=== PATIENT | male | born 1955 | race Caucasian/White ===

== ENCOUNTER 2017-05-08 12:14 | Emergency (ER) | payer MEDICAID, OTHER ==
[2017-05-08 12:21] VITALS: BP 165/94
--- NOTE | 2017-05-08 12:31 | ED Physician Documentation ---
PD HPI CHEST PAIN - Chief complaint Chief Complaint: Cardiac - History obtained from History obtained from: Patient - History of Present Illness Timing - onset: How many days ago (3) Timing - onset during: Eating. No: Light activity, Exertion Timing - duration: Minutes (had had intermittent chest discomfort/pressure that is fleeting, more after eating. Not exertional but does not do exercise per se. Took BP and it was elevated, with known HTN. Had had Metoprolol decreased few months ago due to slower HR. Talked with PMD 2 days ago about symptoms and HTN, and got Rx for HCTZ started yesterday, with appt to see him next week.) Timing - details: Now resolved, Intermittant Quality: Tightness Location: Left chest Radiation: No: Jaw, Neck, Back Worsened by: Eating. No: Exertion, Inspiration, Movement Associated symptoms: No: Shortness of air, Diaphoresis, Nausea, Vomiting, Feeling faint / dizzy, General Weakness, Palpitations, Cough Similar symptoms before: Has not had sx before Recently seen: Not recently seen Review of Systems Constitutional: denies: Fever, Chills Nose: denies: Rhinorrhea / runny nose, Congestion Throat: denies: Sore throat Respiratory: denies: Cough GI: denies: Abdominal Pain, Nausea, Vomiting, Diarrhea Skin: denies: Rash, Lesions Neurologic: denies: Generalized weakness, Focal weakness, Numbness PD PAST MEDICAL HISTORY - Past Medical History Cardiovascular: Hypertension Psych: Depression, Anxiety - Past Surgical History Past Surgical History: Yes General: Hiatal hernia repair HEENT: Rhinoplasty - Present Medications Home Medications: Ambulatory Orders Medication Instructions Recorded Confirmed Citalopram [CeleXA] 10 mg ORAL DAILY 11/17/14 05/08/17 Metoprolol Tartrate 25 mg ORAL DAILY 11/17/14 05/08/17 - Allergies Allergies/Adverse Reactions: Allergies Allergy/AdvReac Type Severity Reaction Status Date / Time No Known Drug Allergies Allergy Verified 11/17/14 19:44 - Social History Does the pt smoke?: Yes Smoking Status: Current every day smoker Does the pt drink ETOH?: Yes Does the pt have substance abuse?: No - Family History Family history: reports: CAD (in brothers and father) - Immunizations Immunizations are current?: Yes PD ED PE NORMAL - Vitals Vital signs reviewed: Yes - General General: Alert and oriented X 3, Well developed/nourished - HEENT HEENT: Moist mucous membranes, Pharynx benign - Neck Neck: Supple, no meningeal sign, No adenopathy - Cardiac Cardiac: RRR, No murmur - Respiratory Respiratory: Clear bilaterally - Abdomen Abdomen: Soft, Non tender - Derm Derm: Normal color, Warm and dry - Extremities Extremities: Normal ROM s pain, No edema, No calf tenderness / cord - Neuro Neuro: Alert and oriented X 3, No motor deficit, Normal speech Results - Vitals Vitals: Vital Signs - 24 hr 05/08/17 12:19 Temperature 35.5 C L Heart Rate 81 Respiratory 16 Rate Blood Pressure 165/94 H O2 Saturation 98 Oxygen O2 Source Room air - EKG (time done) 12:32 Rate: Rate (enter#) (66) Rhythm: NSR [place]: Normal Intervals: Normal CT QRS: Normal Ischemia: Normal ST segments. No: ST elevation c/w ischemia, ST depression PD MEDICAL DECISION MAKING - ED course Complexity details: reviewed results, considered differential (brief intermittent chest discomfort after eating mainly. Not exertional though he does not do exercise per se. ECG is normal and he would prefer to stop at that level of testing. I talked with her about the ECG being only 90-95% accurate for CO and does not include angina. His pattern does not sound anginal. Suggested Troponin and possible CXR. He prefers not and understands the degree of sensitivity of just the ECG. His pattern is more suggestive of GERD or gastritis. Encouraged to follow up with PMD. ), d/w patient Departure - Departure Disposition: 01 Home, Self Care Clinical Impression: Chest pain of uncertain etiology Condition: Stable Record reviewed to determine appropriate education?: Yes Instructions: ED Chest Pain Atypical Unkn Cause Follow-Up: Carolin Quinteros MD [Primary Care Provider] - Comments: Your ECG is normal here, but is not 100% predictive of heart disease. The pattern of your discomfort sounds more like GI/reflux or such, but is also not completely predictive. Follow up with your PMD about BP and further chest discomfort. I would try Pepcid daily for the next 2-3 weeks to treat if this is reflux related. Return to ED if worse symptoms, exertional related, other associated symptoms, etc. Discharge Date/Time: 05/08/17 13:17
== END 2017-05-08 13:17 | disposition home or self-care (01) ==
LOC: ED 12:14
DX: R07.89 Other chest pain (principal); I10 Essential (primary) hypertension; Z82.49 Family history of ischemic heart disease and other diseases of the circulatory system; F17.200 Nicotine dependence, unspecified, uncomplicated
CPT/HCPCS: 93005; 99283; 99284

== ENCOUNTER 2017-11-18 13:22 | Emergency (ER) | payer SELFPAY ==
[2017-11-18 13:30] VITALS: BP 153/84
--- NOTE | 2017-11-18 14:28 | XRAY Report ---
EXAM: CHEST RADIOGRAPHY EXAM DATE: 11/18/2017 02:12 PM. CLINICAL HISTORY: Cough soa. COMPARISON: None. TECHNIQUE: 2 views. FINDINGS: Lungs/Pleura: Clear. No effusion or pneumothorax. Mediastinum: Heart and mediastinal contours are unremarkable. Upper lobe vessels not distended. Other: None. IMPRESSION: No acute disease. [facility] Referring Provider Line: [phone] SITE ID: [id number]
--- NOTE | 2017-11-18 14:40 | ED Physician Documentation ---
PD HPI URI - Stated complaint Stated Complaint: COUGH/DIFF BREATHING - Chief complaint Chief Complaint: Resp - History obtained from History obtained from: Patient - History of Present Illness Timing - onset: How many weeks ago (has had some cough for 6 weeks but worse the past week now with haorse cough, and repetitive cough to point of almost vomiting.) Timing duration: Weeks Timing details: Gradual onset, Still present Associated symptoms: Dry cough, Chest pain (with coughing), Dyspnea. No: Fever , Sore throat, Swollen nodes, Hemoptysis, NVD Contributing factors: No: Sick contact, Travel, Immunocompromised, COPD / asthma Similar symptoms before: Has not had sx before Recently seen: Not recently seen Review of Systems Constitutional: denies: Fever, Chills Nose: denies: Rhinorrhea / runny nose, Congestion Throat: denies: Sore throat Cardiac: reports: Chest pain / pressure (just with coughing). denies: Palpitations Respiratory: reports: Dyspnea, Cough, Wheezing GI: denies: Abdominal Pain, Nausea, Vomiting, Diarrhea Skin: denies: Rash, Lesions PD PAST MEDICAL HISTORY - Past Medical History Cardiovascular: Hypertension Respiratory: None Psych: Depression, Anxiety - Past Surgical History Past Surgical History: Yes General: Hiatal hernia repair HEENT: Rhinoplasty - Present Medications Home Medications: Ambulatory Orders Medication Instructions Recorded Confirmed Citalopram [CeleXA] 10 mg ORAL DAILY 11/17/14 11/18/17 Metoprolol Tartrate 25 mg ORAL DAILY 11/17/14 11/18/17 Albuterol Sulf [Ventolin Hfa 1 - 2 puffs INH Q4HR PRN #1 inhaler 11/18/17 Inhaler] Aspirin 650 mg PO DAILY PM 11/18/17 11/18/17 Atorvastatin [Lipitor] 10 mg PO DAILY PM 11/18/17 11/18/17 Azithromycin [Zithromax] 250 mg PO DAILY #6 tablet 11/18/17 Beclomethasone 40 Mcg [Qvar 40] 1 puffs INH BID #1 inhaler 11/18/17 Dexamethasone [Decadron] 4 mg PO DAILY #5 tablet 11/18/17 Hydrochlorothiazide 12.5 mg PO DAILY PM 11/18/17 11/18/17 guaiFENesin/CODEINE [Robitussin AC] 10 ml PO Q6H PRN #240 ml 11/18/17 - Allergies Allergies/Adverse Reactions: Allergies Allergy/AdvReac Type Severity Reaction Status Date / Time No Known Drug Allergies Allergy Verified 11/18/17 13:29 - Social History Does the pt smoke?: Yes Smoking Status: Current every day smoker Does the pt drink ETOH?: Yes Does the pt have substance abuse?: No - Immunizations Immunizations are current?: Yes PD ED PE NORMAL - Vitals Vital signs reviewed: Yes - General General: Alert and oriented X 3, No acute distress, Well developed/nourished - HEENT HEENT: Ears normal, Pharynx benign - Neck Neck: Supple, no meningeal sign, No adenopathy - Cardiac Cardiac: RRR, No murmur - Respiratory Respiratory: Clear bilaterally, Other (he has some coughing during exam and it is repetitive/spasmodic, hoarse, almost croupy. ) - Abdomen Abdomen: Soft, Non tender - Back Back: No CVA TTP - Derm Derm: Normal color, Warm and dry - Extremities Extremities: No edema, No calf tenderness / cord - Neuro Neuro: Alert and oriented X 3, No motor deficit, Normal speech (but with some mild hoarseness) Results - Vitals Vitals: Oxygen O2 Source Room air - Rads (name of study) chest xray Radiology: Prelim report reviewed (no lung infiltrates) PD MEDICAL DECISION MAKING - ED course Complexity details: considered differential (has coughing to almost vomiting and coarse sound with cough (almost croupy). Consider pertussis/parapertussis with the symptoms. ), d/w patient Departure - Departure Disposition: 01 Home, Self Care Clinical Impression: Cough, Bronchitis Condition: Stable Record reviewed to determine appropriate education?: Yes Instructions: ED Bronchitis Asthmatic Follow-Up: Carolin Quinteros MD [Primary Care Provider] - Prescriptions: Albuterol Sulf [Ventolin Hfa Inhaler] 1 - 2 puffs INH Q4HR PRN #1 inhaler PRN Reason: Shortness Of Air/Wheezing Azithromycin [Zithromax] 250 mg PO DAILY #6 tablet Beclomethasone 40 Mcg [Qvar 40] 1 puffs INH BID #1 inhaler Dexamethasone [Decadron] 4 mg PO DAILY #5 tablet guaiFENesin/CODEINE [Robitussin AC] 10 ml PO Q6H PRN #240 ml PRN Reason: Cough Comments: Drink lots of fluids. Use the albuterol inhaler 2 puffs 4 times a day for the next 7-10 days and then as needed. Use dexamethasone for inflammation of the airways. Azithromycin as directed for potential bacterial infection. This may possibly be all viral but it is hard to tell. Use codeine cough medicine if needed for the cough. After the course of the dexamethasone orally, start the Qvar inhaled steroid twice daily for the next month. Follow-up with your primary care in about 1-2 weeks to see how you are doing and if any change in medication is needed. Recheck or return sooner if not well improved over the next several days. Discharge Date/Time: 11/18/17 15:48
[2017-11-18] MEDS ORDERED: DEXAMETHASONE 10 MG/ML VIAL PO STA (15:00)
[2017-11-18] MEDS ORDERED: BENZONATATE 100 MG CAPSULE PO STA (15:00)
[2017-11-18] MEDS ORDERED: ALBUTEROL NEB 2.5 MG/3 ML INH STA (15:00)
== END 2017-11-18 15:48 | disposition home or self-care (01) ==
LOC: ED 13:22
DX: J40 Bronchitis, not specified as acute or chronic (principal); I10 Essential (primary) hypertension; Z79.82 Long term (current) use of aspirin; F17.200 Nicotine dependence, unspecified, uncomplicated
CPT/HCPCS: 71020; 94640; 94664; 99283; A9270; J7613

== ENCOUNTER 2018-03-10 10:08 | Emergency (ER) | payer MEDICAID ==
[2018-03-10 10:15] VITALS: BP 143/98
--- NOTE | 2018-03-10 10:22 | ED Physician Documentation ---
History of Present Illness - Stated complaint Stated Complaint: DIZINESS/GLF - Chief complaint Chief Complaint: Neuro - History obtained from History obtained from: Patient - History of Present Illness Timing: Yesterday - Additonal information Additional information: 62-year-old previously healthy male has developed acute dizziness starting yesterday. He states he was very dizzy when he got up in the morning the dizziness seemed to improve during the day and today when he got into the shower he went to bend over became extremely dizzy thought he might need to come in to be checked. He has had some headaches over the past 6-8 weeks that have been on the vertex of the head. He has had some cough and congestion as well. He has not had nausea or vomiting he has not had focal neurologic deficits. Review of Systems Constitutional: denies: Fever Eyes: denies: Decreased vision Ears: denies: Ear pain Nose: reports: Rhinorrhea / runny nose, Congestion Throat: denies: Sore throat Cardiac: denies: Chest pain / pressure, Palpitations Respiratory: reports: Cough. denies: Dyspnea GI: denies: Abdominal Pain, Nausea, Vomiting : denies: Dysuria, Frequency Skin: denies: Rash Musculoskeletal: denies: Neck pain, Back pain, Extremity pain Neurologic: reports: Headache. denies: Generalized weakness, Focal weakness, Numbness, Difficulty speaking, Altered mental status, Head injury, LOC PD PAST MEDICAL HISTORY - Past Medical History Cardiovascular: Hypertension Respiratory: None Psych: Depression, Anxiety - Past Surgical History Past Surgical History: Yes General: Hiatal hernia repair HEENT: Rhinoplasty - Present Medications Home Medications: Ambulatory Orders Medication Instructions Recorded Confirmed Citalopram [CeleXA] 10 mg ORAL DAILY 11/17/14 11/18/17 Metoprolol Tartrate 25 mg ORAL DAILY 11/17/14 11/18/17 Aspirin 650 mg PO DAILY PM 11/18/17 11/18/17 Atorvastatin [Lipitor] 10 mg PO DAILY PM 11/18/17 11/18/17 Hydrochlorothiazide 12.5 mg PO DAILY PM 11/18/17 11/18/17 Azithromycin [Zithromax] 250 mg PO DAILY #6 tablet 03/10/18 Meclizine HCl [Motion Sickness 25 - 50 mg PO Q6HR PRN #20 tablet 03/10/18 Relief] Ondansetron Odt [Zofran] 4 mg TL Q6H PRN #10 tablet 03/10/18 Trazodone HCl 03/10/18 - Allergies Allergies/Adverse Reactions: Allergies Allergy/AdvReac Type Severity Reaction Status Date / Time No Known Drug Allergies Allergy Verified 11/18/17 13:29 - Social History Does the pt smoke?: Yes Smoking Status: Current every day smoker Does the pt drink ETOH?: Yes Does the pt have substance abuse?: No - Immunizations Immunizations are current?: Yes PD ED PE NORMAL - Vitals Vital signs reviewed: Yes (hypertensive ) - General General: Alert and oriented X 3, No acute distress, Well developed/nourished - HEENT HEENT: Atraumatic, PERRL, EOMI, Pharynx benign, Other (There is mild inflamation to the TM's bilaterally and there is lichenification to the attic on the left. 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, No motor deficit, No sensory deficit, Normal speech Eye Opening: Spontaneous Motor: Obeys Commands Verbal: Oriented GCS Score: 15 - Psych Psych: Normal mood, Normal affect Results - Vitals Vitals: Vital Signs - 24 hr 03/10/18 10:12 Temperature 36.6 C Heart Rate 69 Respiratory 18 Rate Blood Pressure 143/98 H O2 Saturation 96 Oxygen O2 Source Room air - EKG (time done) 1017 Rate: Rate (enter#) Rhythm: NSR Ischemia: Normal ST segments, Q waves Compare to prior EKG: Unchanged from prior EKG (05-08-17) Computer interpretation: Agree with computer PD MEDICAL DECISION MAKING - ED course Complexity details: considered differential, d/w patient ED course: 62-year-old previously healthy male with acute dizziness appears to have labyrinthitis on examination with 4 beats of nystagmus bilaterally. He has been having some headaches and I discussed with the patient obtained CT scanning of the head and he would like to defer this as he does not have insurance at this point. He does have some evidence of infection to both TMs and here in the emergency department he is treated with dexamethasone and meclizine and we will put him on some antibiotic as well. He does have a primary care for follow-up. Departure - Departure Disposition: 01 Home, Self Care Clinical Impression: Labyrinthitis Qualifiers: Laterality: bilateral Qualified Code(s): H83.03 - Labyrinthitis, bilateral Otitis media Qualifiers: Otitis media type: suppurative Chronicity: acute Laterality: bilateral Recurrence: not specified as recurrent Spontaneous tympanic membrane rupture: without spontaneous rupture Qualified Code(s): H66.003 - Acute suppurative otitis media without spontaneous rupture of ear drum, bilateral Condition: Stable Instructions: ED Labyrinthitis, ED Otitis Media Acute Adult Follow-Up: Carolin Quinteros MD [Primary Care Provider] - Prescriptions: Meclizine HCl [Motion Sickness Relief] 25 - 50 mg PO Q6HR PRN #20 tablet PRN Reason: Dizziness Azithromycin [Zithromax] 250 mg PO DAILY #6 tablet Ondansetron Odt [Zofran] 4 mg TL Q6H PRN #10 tablet PRN Reason: Nausea / Vomiting
[2018-03-10] MEDS ORDERED: MECLIZINE 12.5 MG TABLET PO STA (10:36)
[2018-03-10] MEDS ORDERED: DEXAMETHASONE 10 MG/ML VIAL PO STA (10:36)
[2018-03-10] MEDS ORDERED: ONDANSETRON ODT 4 MG TABLET TL STA (10:45)
[2018-03-10] MEDS ORDERED: CHERRY SYRUP 10 ML UDC PO ONE (10:49)
== END 2018-03-10 10:54 | disposition home or self-care (01) ==
LOC: ED 10:08
DX: H83.03 Labyrinthitis, bilateral (principal); H66.003 Acute suppurative otitis media without spontaneous rupture of ear drum, bilateral; I10 Essential (primary) hypertension; Z79.82 Long term (current) use of aspirin; F17.200 Nicotine dependence, unspecified, uncomplicated
CPT/HCPCS: 93005; 99283; A9270; Q0162

== ENCOUNTER 2021-02-28 12:42 | Emergency (ER) | payer MEDICAID ==
[2021-02-28] MEDS ORDERED: BUFFERED LIDOCAINE 10 ML SYRINGE SUBQ STA (13:26)
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
[2021-02-28] MEDS ORDERED: TETANUS/DIPHTHERIA TOXOID 0.5 ML SYRINGE IM ONE (14:13)
[2021-02-28 14:22] VITALS: BP 140/80
== END 2021-02-28 14:21 | disposition home or self-care (01) ==
LOC: ED 12:42
DX: S61.011A Laceration without foreign body of right thumb without damage to nail, initial encounter (principal); W27.4XXA Contact with kitchen utensil, initial encounter; Y93.G1 Activity, food preparation and clean up; Y92.511 Restaurant or cafe as the place of occurrence of the external cause; Y99.0 Civilian activity done for income or pay; Z23 Encounter for immunization; I10 Essential (primary) hypertension; Z79.82 Long term (current) use of aspirin; F17.200 Nicotine dependence, unspecified, uncomplicated
CPT/HCPCS: 12002; 90471; 99282

== ENCOUNTER 2021-09-25 12:42 | Emergency (ER) | payer MEDICAID ==
[2021-09-25 12:57] VITALS: BP 153/65
--- NOTE | 2021-09-25 13:34 | XRAY Report ---
PROCEDURE: Chest 1 View X-Ray INDICATIONS: Chest Pain TECHNIQUE: One view of the chest was acquired. COMPARISON: Chest x-ray report 11/18/2017, images are not available for comparison. FINDINGS: Surgical changes and devices: None. Lungs and pleura: No pleural effusions or pneumothorax. Lungs are clear. Mediastinum: Mediastinal contours appear normal. Heart size is normal. Bones and chest wall: No suspicious bony lesions. Overlying soft tissues appear unremarkable. IMPRESSION: No acute pulmonary process. Reviewed by: Nica Nash MD on 09/25/2021 1:33 PM PDT Approved by: Nica Nash MD on 09/25/2021 1:33 PM PDT Station ID: [id number]
[2021-09-25 13:42] LABS: BASOPHILS % (AUTO) 0.3 %; EOSINOPHILS # (AUTO) 0.1 10^3/uL (0.0-0.7); HGB - HEMOGLOBIN 15.3 g/dL (14.0-18.0); LYMPHOCYTES # (AUTO) 1.9 10^3/uL (1.5-3.5); LYMPHOCYTES % (AUTO) 27.7 %; MEAN CORPUSCULAR HEMOGLOBIN 32.4 pg (27.0-31.0); MEAN CORPUSCULAR HGB CONC 34.8 g/dL (32.0-36.0); MEAN CORPUSCULAR VOLUME 93.2 fL (80.0-94.0); MONOCYTES # (AUTO) 0.6 10^3/uL (0.0-1.0); MONOCYTES % (AUTO) 7.9 %; NEUTROPHILS # (AUTO) 4.3 10^3/uL (1.5-6.6); NEUTROPHILS % (AUTO) 62.7 %; PLT - PLATELET COUNT 206 10^3/uL (130-450); RED BLOOD COUNT 4.72 10^6/uL (4.70-6.10); RED CELL DISTRIBUTION WIDTH 13.2 % (12.0-15.0); WHITE BLOOD COUNT 6.9 x10^3/uL (4.8-10.8)
[2021-09-25 13:57] LABS: ALBUMIN 4.6 g/dL (3.2-5.5); ALBUMIN/GLOBULIN RATIO 1.5 (1.0-2.2); BILIRUBIN,TOTAL 0.8 mg/dL (0.2-1.0); CALCIUM 9.2 mg/dL (8.5-10.3); CREATININE 0.9 mg/dL (0.6-1.2); POTASSIUM 3.3 mmol/L (3.5-5.0); TOTAL PROTEIN 7.7 g/dL (6.7-8.2)
== END 2021-09-25 15:05 | disposition left against medical advice (07) ==
LOC: ED 12:42
DX: Z53.21 Procedure and treatment not carried out due to patient leaving prior to being seen by health care provider (principal)
CPT/HCPCS: 36415; 80053; 83690; 83880; 84484; 85025; 93005

== ENCOUNTER 2022-05-19 17:01 | Emergency (ER) | payer MEDICAID ==
[2022-05-19 17:10] VITALS: BP 114/99
--- NOTE | 2022-05-19 17:13 | ED Physician Documentation ---
PD HPI UPPER EXT INJURY - Stated complaint Stated Complaint: LT FING LAC/INJ - Chief complaint Chief Complaint: Laceration - History obtained from History obtained from: Patient - History of Present Illness Location: Left, Finger (middle and ring fingers distal phalanx plamar pads.) Type of injury: Laceration (with sharp knife at work while cutting [employer] lettuce.) Where injury occurred: Work Timing - onset: How many hours ago (1), Today Timing - details: Abrupt onset, Still present (still bleeding some without direct pressure.) Associated symptoms: Numbness (somewhat decreased sensation distal middle finger radial side.). No: Weakness, Tingling Similar symptoms before: Has not had sx before Review of Systems Skin: reports: Laceration (s). denies: Rash Neurologic: denies: Focal weakness PD PAST MEDICAL HISTORY - Past Medical History Cardiovascular: Hypertension Respiratory: None Psych: Depression, Anxiety - Past Surgical History Past Surgical History: Yes General: Hiatal hernia repair HEENT: Rhinoplasty - Present Medications Home Medications: Ambulatory Orders Medication Instructions Recorded Confirmed Metoprolol Tartrate 25 mg ORAL DAILY 11/17/14 09/25/21 Atorvastatin [Lipitor] 10 mg PO DAILY PM 11/18/17 09/25/21 hydroCHLOROthiazide 12.5 mg PO DAILY PM 11/18/17 09/25/21 [Hydrochlorothiazide] Trazodone HCl 100 mg PO HS 03/10/18 09/25/21 Ibuprofen [Motrin] 600 mg PO Q6H PRN #30 tab 02/28/21 09/25/21 - Allergies Allergies/Adverse Reactions: Allergies Allergy/AdvReac Type Severity Reaction Status Date / Time No Known Drug Allergies Allergy Verified 05/19/22 17:10 - Social History Does the pt smoke?: Yes Smoking Status: Current every day smoker Does the pt drink ETOH?: Yes Does the pt have substance abuse?: No - Immunizations Immunizations are current?: Yes PD ED PE NORMAL - Vitals Vital signs reviewed: Yes - General General: Alert and oriented X 3, No acute distress, Well developed/nourished - Derm Derm: Normal color, Warm and dry - Extremities Extremities: Other (left middle and ring fingers with 1 cm laceration on each to fatty tissue, without FB, but with ongoing bleeding without direct pressure. ) - Neuro Neuro: Alert and oriented X 3, No motor deficit, Normal speech, Other (mild decreased sensation radial side middle finger distal to lac. Still able to distinguish touch though. ) Results - Vitals Vitals: Vital Signs - 24 hr 05/19/22 17:05 Temperature 36.5 C Heart Rate 74 Respiratory 14 Rate Blood Pressure 114/99 H O2 Saturation 100 Oxygen O2 Source Room air Procedures - Laceration (location) left fingers Length in cm: 2 (1 cm each on middle and ring fingers) Wound type: Linear, Into subcut fat, Clean Neurovascular status: Motor intact, Vascular intact, Other (some decreased sensation distal to the middle finger lac on radial side.) Tendon involvement: Tendon intact Anesthesia: Lidocaine 1% Wound preparation: Irrigated copiously NS, Wound explored, To the base Skin layer closure: Nylon, Size #-0 - enter number (4), Sutures - enter # (6) Other: Patient tolerated well, No complications, Dressing applied, Tetanus UTD PD MEDICAL DECISION MAKING - ED course Complexity details: re-evaluated patient, considered differential, d/w patient Departure - Departure Disposition: 01 Home, Self Care Clinical Impression: Finger laceration Qualifiers: Encounter type: initial encounter Finger: unspecified finger Damage to nail status: without damage Foreign body presence: without foreign body Laterality: left Qualified Code(s): S61.219A - Laceration without foreign body of unspecified finger without damage to nail, initial encounter Condition: Stable Record reviewed to determine appropriate education?: Yes Instructions: ED Laceration Hand Comments: It is okay to wash and shower. Clean off the wound twice a day with soap and water, or peroxide and water. Apply some antibiotic ointment to it to keep it moist. Also to watch for signs of infection such as purulence, redness or increasing pain. Return to your primary care or the ER at the specified time for suture removal. Suture removal 7 to 8 days. Tylenol ibuprofen if needed. Try to keep the wounds clean but otherwise regular activity is good.
[2022-05-19] MEDS ORDERED: BACITRACIN ZINC OINT 1 PACKET TOP STA (17:33)
[2022-05-19] MEDS ORDERED: IBUPROFEN 600 MG TABLET PO STA (17:33)
== END 2022-05-19 18:00 | disposition home or self-care (01) ==
LOC: ED 17:01
DX: S61.213A Laceration without foreign body of left middle finger without damage to nail, initial encounter (principal); S61.215A Laceration without foreign body of left ring finger without damage to nail, initial encounter; W26.0XXA Contact with knife, initial encounter; Y93.G1 Activity, food preparation and clean up; Y92.89 Other specified places as the place of occurrence of the external cause; Y99.0 Civilian activity done for income or pay; F17.200 Nicotine dependence, unspecified, uncomplicated
CPT/HCPCS: 12001; 99282; A9270

== ENCOUNTER 2022-05-26 18:12 | Emergency (ER) | payer MEDICAID ==
[2022-05-26 18:31] VITALS: BP 130/79
[2022-05-26] MEDS ORDERED: AMOX/CLAV 875 MG/125 MG TABLET PO STA (19:53)
--- NOTE | 2022-05-26 19:55 | ED Physician Documentation ---
PD HPI UPPER EXT INJURY - Stated complaint Stated Complaint: L FINGER WOUND - Chief complaint Chief Complaint: Laceration - History obtained from History obtained from: Patient (He received sutures to the left third and fourth fingers a week ago, over the last day or 2 has developed swelling and redness on the middle finger. No fevers or systemic symptoms.) Review of Systems Constitutional: reports: Reviewed and negative Eyes: reports: Reviewed and negative Ears: reports: Reviewed and negative Nose: reports: Reviewed and negative PD PAST MEDICAL HISTORY - Past Medical History Cardiovascular: Hypertension Respiratory: None Psych: Depression, Anxiety - Past Surgical History Past Surgical History: Yes General: Hiatal hernia repair HEENT: Rhinoplasty - Present Medications Home Medications: Ambulatory Orders Medication Instructions Recorded Confirmed Metoprolol Tartrate 25 mg ORAL DAILY 11/17/14 09/25/21 Atorvastatin [Lipitor] 10 mg PO DAILY PM 11/18/17 09/25/21 hydroCHLOROthiazide 12.5 mg PO DAILY PM 11/18/17 09/25/21 [Hydrochlorothiazide] Trazodone HCl 100 mg PO HS 03/10/18 09/25/21 Ibuprofen [Motrin] 600 mg PO Q6H PRN #30 tab 02/28/21 09/25/21 Amox/Clav 875/125 [Augmentin] 1 each PO Q12H #14 tablet 05/26/22 - Allergies Allergies/Adverse Reactions: Allergies Allergy/AdvReac Type Severity Reaction Status Date / Time No Known Drug Allergies Allergy Verified 05/26/22 18:31 - Social History Does the pt smoke?: Yes Smoking Status: Current every day smoker Does the pt drink ETOH?: Yes Does the pt have substance abuse?: No - Immunizations Immunizations are current?: Yes PD ED PE NORMAL - Vitals Vital signs reviewed: Yes - General General: Alert and oriented X 3, No acute distress - Extremities Extremities: Other (The left middle finger has the appearance of the an abscess under the suture line. 2 of the sutures removed during exam and pus came up and was expressed and sent for culture. He tolerated well. No sign of flexor tenosynovitis.) - Neuro Neuro: Alert and oriented X 3, Normal speech Results - Vitals Vitals: Vital Signs - 24 hr 05/26/22 18:27 Temperature 36.1 C L Heart Rate 74 Respiratory 16 Rate Blood Pressure 130/79 O2 Saturation 95 Oxygen O2 Source Room air - Labs Labs: Microbiology 05/26/22 19:50 Wound Culture - Preliminary Finger - Left Middle PD MEDICAL DECISION MAKING - ED course ED course: He has a suture line infection of LMF. 2/3 sutures removes and pus obtained and cx. Departure - Departure Disposition: 01 Home, Self Care Clinical Impression: Wound infection Condition: Good Record reviewed to determine appropriate education?: Yes Instructions: ED Wound Infec After Surgery Prescriptions: Amox/Clav 875/125 [Augmentin] 1 each PO Q12H #14 tablet Comments: You can wash with soap and water and generally keep it clean and dry and covered with a Band-Aid. Return if you worsen. We are performing a wound culture, the results should be done in 48-72 hours. If antibiotic change is necessary we will call you. Return if worse in the meantime, especially if you develop increased pain, fevers, cannot keep down the medication. Otherwise follow-up with your physician in approximately 2-3 days. Forms: Activity restrictions Discharge Date/Time: 05/26/22 20:01
== END 2022-05-26 20:01 | disposition home or self-care (01) ==
LOC: ED 18:12
DX: S61.213D Laceration without foreign body of left middle finger without damage to nail, subsequent encounter (principal); S61.215D Laceration without foreign body of left ring finger without damage to nail, subsequent encounter; X58.XXXD Exposure to other specified factors, subsequent encounter; I10 Essential (primary) hypertension; F17.200 Nicotine dependence, unspecified, uncomplicated
CPT/HCPCS: 87070; 87181; 87205; 99282; 99283; A9270